=== PATIENT | male | born 1980 | race African-American/Black ===

== ENCOUNTER 2017-08-31 12:09 | Emergency (ER) | payer SELFPAY ==
--- NOTE | 2017-08-31 12:48 | ER Document Report ---
HPI - HPI Patient complains to provider of: left jaw pain Onset: Other - 2 days ago Pain Level: 3 Context: 37 yo male slipped in the shower and hit left side of chew on tub, hurts to chew on the left side, external left ear also was injured, dried blood on it. Hurts to open his mouth Associated Symptoms: None Exacerbated by: Movement - jaw Similar symptoms previously: No Recently seen / treated by doctor: No - ROS ROS below otherwise negative: Yes Systems Reviewed and Negative: Yes All other systems reviewed and negative Past Medical History - General Information source: Patient - Social History Smoking Status: Current Every Day Smoker Frequency of alcohol use: None Drug Abuse: None Lives with: Family Family History: Reviewed & Not Pertinent - Medical History Medical History: Negative Surgical Hx: Negative Vertical Provider Document - CONSTITUTIONAL Agree With Documented VS: Yes General Appearance: No Apparent Distress - INFECTION CONTROL TRAVEL OUTSIDE OF THE [place] IN LAST 30 DAYS: No - HEENT HEENT: Normocephalic, PERRLA Notes: left lateral jubconjunctiva hemorrhage. PERRL, able to see out of left eye - with my fingers in front of eye. eom's intact. abrasion to left adventist and left superior external ear. teeth stable, tender mid left madible and malar bone. minimal trismus. gingivitis, no oral abscess - NECK Neck: Supple - RESPIRATORY Respiratory: Breath Sounds Normal, No Respiratory Distress - CARDIOVASCULAR Cardiovascular: Regular Rate, Regular Rhythm - MUSCULOSKELETAL/EXTREMETIES Musculoskeletal/Extremeties: MAEW - NEURO Level of Consciousness: Awake, Alert - DERM Integumentary: Warm, Dry Course - Re-evaluation Re-evalutation: 08/31/17 14:22 Radiologist states that there is no fracture or bone but there is a second upper molar apical infection will treat with penicillin. Refer to dentist. - Vital Signs Vital signs: Temp Pulse Resp BP Pulse Ox 97.4 F 74 18 132/97 H 96 08/31/17 12:13 08/31/17 12:13 08/31/17 12:13 08/31/17 12:13 08/31/17 12:13 Discharge - Discharge Clinical Impression: Dental decay, dental abscess Subconjunctival hemorrhage Qualifiers: Laterality: left Qualified Code(s): H11.32 - Conjunctival hemorrhage, left eye Facial abrasion Qualifiers: Encounter type: initial encounter Qualified Code(s): S00.81XA - Abrasion of other part of head, initial encounter Condition: Good Disposition: HOME, SELF-CARE Instructions: Abrasions of the Face ([facility]), Acetaminophen, Contusion ([facility]), Dentist, Dental Infection or Abscess ([facility]), Ibuprofen (General) ([facility]), Penicillin V K ([facility]), Stop Smoking ([facility]), Subconjunctival Hemorrhage ([facility]), Tetanus Immunization Given ([facility]), Warm Packs ([facility]) Additional Instructions: warm compress antibiotics see the dentist to er any concerns stop smoking Prescriptions: Ibuprofen [Motrin 800 mg Tablet] 800 mg PO Q8HP PRN #30 tablet PRN Reason: Penicillin V Potassium [Penicillin Vk 500 mg Tablet] 500 mg PO QID #40 tablet
[2017-08-31] MEDS ORDERED: IBUPROFEN 800 MG TABLET PO ONE (12:49)
[2017-08-31] MEDS ORDERED: DIPH/PERTUSS(ACELL)/TETANUS VAC/PF 0.5 ML SYR (>=10YO) IM ONE (12:52)
[2017-08-31] MEDS ORDERED: PENICILLIN V POTASSIUM 500 MG TABLET PO ONE (14:11)
--- NOTE | 2017-08-31 14:12 | RADIOLOGY REPORT (SQ) ---
EXAM DESCRIPTION: CT FACIAL AREA WITHOUT COMPLETED DATE/TIME: 08/31/2017 1:53 pm REASON FOR STUDY: hit left jaw on tub COMPARISON: None. TECHNIQUE: Noncontrasted images through the facial bones and orbits windowed for bone and soft tissu e. Additional coronal and sagittal reconstructed images reviewed. All images stored on PACS. All CT scanners at this facility use dose modulation, iterative reconstruction, and/or weight based d osing when appropriate to reduce radiation dose to as low as reasonably achievable (ALARA). [facility]: Dose Right [facility]: CareDose [facility]: Dose Right [facility]: Teradose 4D [facility]: Industry Dive RADIATION DOSE: CT Rad equipment meets quality standard of care and radiation dose reduction techniq ues were employed. CTDIvol: 30.4 mGy. DLP: 604 mGy-cm. mGy. LIMITATIONS: None. FINDINGS: On sagittal image 37 and coronal image 24-26, advanced dental caries are present in the le ft posterior upper molar tooth with periapical tooth root lucencies worrisome for abscess. There is left-sided adenopathy in the submandibular, carotid space regions likely reactive. No gross soft tissue abscess in the left deep facial structures on this non contrasted CT. These findings were discussed with Delicia Roland in the emergency room. FACIAL BONES: No fracture or bone lesion. ORBITS: Intact. No fracture. Symmetric intact globes and retroorbital soft tissues. PARANASAL SINUSES: Clear. No significant mucosal thickening, mass or fluid. No nasal polyps. Maxill alyssa sinus outlets are patent. SOFT TISSUES: As above INFERIOR BRAIN: Limited view. No acute findings. OTHER: No other significant finding. IMPRESSION: Left upper 2nd molar tooth root abscess with reactive left submandibular and carotid spa ce adenopathy TECHNICAL DOCUMENTATION: JOB ID: [id number] Quality ID # [id number]: Final reports with documentation of one or more dose reduction techniques (e.g., Au tomated exposure control, adjustment of the mA and/or kV according to patient size, use of iterative reconstruction technique) 2010 [employer]- All Rights Reserved Reading location - IP/workstation name: [email or web address]
[2017-08-31 14:28] VITALS: BP 118/74
== END 2017-08-31 14:28 | disposition home or self-care (01) ==
LOC: ER 12:09
DX: S00.81XA Abrasion of other part of head, initial encounter (principal); H11.32 Conjunctival hemorrhage, left eye; K02.9 Dental caries, unspecified; K04.7 Periapical abscess without sinus; R68.84 Jaw pain; W18.2XXA Fall in (into) shower or empty bathtub, initial encounter; F17.200 Nicotine dependence, unspecified, uncomplicated
CPT/HCPCS: 70486; 90471; 90715; 99283

== ENCOUNTER 2019-03-19 18:20 | Emergency (ER) | payer SELFPAY ==
--- NOTE | 2019-03-19 19:00 | ER Document Report ---
ED Medical Screen (RME) - General Chief Complaint: Medical Clearance Stated Complaint: MEDICAL CLEARANCE Time Seen by Provider: 03/19/19 18:57 Mode of Arrival: Ambulatory Information source: Patient Notes: Patient presents emergency department for work note to go back to work. Reports he called out of work at the [employer] on Sunday because he was vomiting had diarrhea. He returned to work today and they want a work note. Patient reports he is fine no problems. I have greeted and performed a rapid initial assessment of this patient. A comprehensive ED assessment and evaluation of the patient, analysis of test results and completion of the medical decision making process will be conducted by additional ED providers. Dictation of this chart was performed using voice recognition software; therefore, there may be some unintended grammatical errors. TRAVEL OUTSIDE OF THE [place] IN LAST 30 DAYS: No - Related Data Allergies/Adverse Reactions: No Known Allergies Allergy (Unverified 08/31/17 13:21) Past Medical History Renal/ Medical History: Denies: Hx Peritoneal Dialysis
--- NOTE | 2019-03-19 22:05 | ER Document Report ---
HPI - HPI Time Seen by Provider: 03/19/19 18:57 Pain Level: Denies Notes: Patient is an otherwise healthy 38-year-old male presenting with request for work note. Patient reports approximately 3 days ago he had several episodes of nausea, vomiting and diarrhea. He states he missed work due to this. He states his job told him he had to be out of work for 72 hours. He states he was out of work for 72 hours but unfortunately when he went back to work today they told him he could not come back without a work note. Patient reports he has not had any nausea, vomiting or diarrhea in greater than 72 hours. - REPRODUCTIVE Reproductive: DENIES: : Past Medical History - General Information source: Patient - Social History Smoking Status: Current Every Day Smoker Chew tobacco use (# tins/day): No Frequency of alcohol use: Occasional Drug Abuse: None Family History: Reviewed & Not Pertinent Patient has suicidal ideation: No Patient has homicidal ideation: No - Medical History Medical History: Negative Renal/ Medical History: Denies: Hx Peritoneal Dialysis Surgical Hx: Negative - Immunizations Immunizations up to date: Yes Vertical Provider Document - CONSTITUTIONAL Notes: PHYSICAL EXAMINATION: GENERAL: Well-appearing, well-nourished and in no acute distress. HEAD: Atraumatic, normocephalic. EYES: Pupils equal round and reactive to light, extraocular movements intact, sclera anicteric, conjunctiva are normal. ENT: Nares patent, oropharynx clear without exudates. Moist mucous membranes. NECK: Normal range of motion, supple without lymphadenopathy LUNGS: Breath sounds clear to auscultation bilaterally and equal. No wheezes rales or rhonchi. HEART: Regular rate and rhythm without murmurs ABDOMEN: Soft, nontender, nondistended abdomen. No guarding, no rebound. No masses appreciated. Musculoskeletal: Normal range of motion, no pitting or edema. No cyanosis. NEUROLOGICAL: Cranial nerves grossly intact. Normal speech, normal gait. Nor mal sensory, motor exams PSYCH: Normal mood, normal affect. SKIN: Warm, Dry, normal turgor, no rashes or lesions noted. - INFECTION CONTROL TRAVEL OUTSIDE OF THE [place] IN LAST 30 DAYS: No Course - Re-evaluation Re-evalutation: Patient appears well, nontoxic, vital signs within normal limits. Physical examination unremarkable. Patient asymptomatic. Patient cleared to return to work and be discharged home. Discharge - Discharge Clinical Impression: medical clearance Condition: Stable Disposition: HOME, SELF-CARE Additional Instructions: You are cleared to return to work. Please continue to do good handwashing. Prescriptions: Promethazine HCl [Phenergan 25 mg Tablet] 1 tab PO Q6H PRN #15 tablet PRN Reason: Forms: Special Work Note
[2019-03-19 22:26] VITALS: BP 137/87
== END 2019-03-19 22:26 | disposition home or self-care (01) ==
LOC: ER 18:20
DX: R11.2 Nausea with vomiting, unspecified (principal); R19.7 Diarrhea, unspecified; F17.200 Nicotine dependence, unspecified, uncomplicated
CPT/HCPCS: 99281

== ENCOUNTER 2020-05-25 09:17 | Emergency (ER) | payer SELFPAY ==
[2020-05-25 09:31] VITALS: BP 139/87
[2020-05-25] MEDS ORDERED: PROMETHAZINE HCL 25 MG TABLET PO ONE (10:43)
[2020-05-25] MEDS ORDERED: OXYCODONE HCL IR 5 MG TABLET PO ONE (10:43)
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
[2020-05-25 11:53] LABS: HEMATOCRIT 37.3 % (37.9-51.0); HEMOGLOBIN 12.8 g/dL (13.5-17.0); MEAN CORPUSCULAR HEMOGLOBIN 31.3 pg (27.0-33.4); MEAN CORPUSCULAR HGB CONC 34.3 g/dL (32.0-36.0); MEAN CORPUSCULAR VOLUME 91 fl (80-97); PLATELET COUNT 336 10^3/uL (150-450); RED CELL DISTRIBUTION WIDTH 12.9 % (11.5-14.0); WHITE BLOOD COUNT 8.1 10^3/uL (4.0-10.5)
[2020-05-25 12:10] LABS: ANION GAP 6 (5-19); BLOOD UREA NITROGEN 10 mg/dL (7-20); CALCIUM 9.2 mg/dL (8.4-10.2); CARBON DIOXIDE 29 mmol/L (22-30); CHLORIDE 101 mmol/L (98-107); GLUCOSE 88 mg/dL (75-110); POTASSIUM 4.6 mmol/L (3.6-5.0)
[2020-05-25 12:28] LABS: ABSOLUTE LYMPHOCYTES# (MANUAL) 1.5 10^3/uL (0.5-4.7); ABSOLUTE MONOCYTES # (MANUAL) 0.6 10^3/uL (0.1-1.4); BASOPHILS % (MANUAL) 1 % (0-2); EOSINOPHILS % (MANUAL) 3 % (0-6); LYMPHOCYTES % (MANUAL) 18 % (13-45); METAMYELOCYTES % (MANUAL) 1 % (0-1); MONOCYTES % (MANUAL) 8 % (3-13); SEGMENTED NEUTROPHILS % (MAN) 68 % (42-78); TOTAL CELLS COUNTED 100
[2020-05-25 12:29] LABS: RBC MORPHOLOGY COMMENT NORMO-CYTIC/CHROMIC; TOXIC VACUOLATION PRESENT
[2020-05-25 12:30] LABS: PLATELET COMMENT ADEQUATE
== END 2020-05-25 13:02 | disposition home or self-care (01) ==
LOC: ER 09:17
DX: L76.82 Other postprocedural complications of skin and subcutaneous tissue (principal); R10.84 Generalized abdominal pain; F17.200 Nicotine dependence, unspecified, uncomplicated
CPT/HCPCS: 36415; 80048; 85025; 99283